=== PATIENT | female | born 2000 | race Caucasian/White ===

== ENCOUNTER 2025-05-31 14:41 | Emergency (ER) | payer OTHER, SELFPAY ==
[2025-05-31 14:49] VITALS: BP 138/97
[2025-05-31 15:25] LABS: Hematocrit 38.4 % (37.0-47.0); Hemoglobin 12.9 g/dL (12.0-16.0); Mean Corp Hgb Conc. 33.6 g/dL (33.0-37.0); Mean Corpuscular Volume 80.3 fL (81.0-99.0); Nucleated Red Blood Cells % 0 %; Platelet Count 357 10^3/uL (130-400); Red Cell Dist. Width 13.6 % (11.5-14.5)
[2025-05-31 15:38] LABS: HCG, Serum Qualitative Screen Negative
[2025-05-31 15:46] LABS: Troponin I < 0.012 ng/ml
[2025-05-31 15:51] LABS: ALT (SGPT) 18 U/L (0-35); AST (SGOT) 18 U/L (14-36); Albumin 4.3 g/dl (3.5-5.0); Alkaline Phosphatase 80 U/L (38-126); Blood Urea Nitrogen 12 mg/dl (7-17); Calcium 9.1 mg/dl (8.4-10.2); Carbon Dioxide 21 mmol/L (22-30); Chloride 111 mmol/L (98-107); Glucose 85 mg/dl (70-99); Potassium 4.4 mmol/L (3.5-5.1); Sodium 139 mmol/L (135-145); Total Protein 7.3 g/dl (6.3-8.2); eGFR > 60.00
[2025-05-31 16:35] VITALS: BP 128/80; BMI 53.1
--- NOTE | 2025-05-31 16:55 | ED.GENMED ---
History of Present Illness
General
Chief Complaint: Chest Pain
Source: patient
Time Seen by Provider: 05/31/25 16:42
History of Present Illness
History of Present Illness:
24-year-old female presents to the emergency department with complaints of right arm pain that she noticed earlier today, approximately 10 or 11 AM that then started to radiate up to her right neck and chest while she was in the shower. This
concerned her that it may be consistent with vasospasm which she had in the past which prompted her visit here. She now describes a 'dull ache' in her right arm, very mild in intensity associated with waves of a 'tight cramp' in her chest that
comes and goes without specific provoking or relieving factors. It is not pleuritic in nature and she denies associated dyspnea, leg swelling, recent immobilization, recent trauma, estrogen used. She denies nausea, vomiting, fever, chills, urinary
symptoms. Her last menstruation was last week. She denies anorexia and her bowel movements are normal. She denies numbness, tingling, swelling, headache, dizziness, or other complaints.
Past History
Past History
ED Past Medical History: Other (Asthma, reflux, vasospasm)
Social History
Tobacco: Non-smoker
Alcohol: Occasional
Drug: None
Personal: Partner
Living: with family
Phy Exam
Physical Exam
Physical Exam:
GENERAL: Alert , in no apparent distress
EYE: pupils equal and reactive
NECK: Supple, no significant adenopathy.
ENT: o/p clr, mmm.
CARDIAC: Regular rate and rhythm .
LUNGS: Clear breath sounds bilaterally, no acute respiratory distress, no wheezes/rales/rhonchi
ABDOMEN: Soft, without focal tenderness, no r/g, no cvat
NEUROLOGICAL: Alert and oriented, no focal neuro deficits
SKIN: Warm and dry, skin intact.
MUSCULOSKELETAL: No edema, well perfused.
PSYCH: Normal and appropriate interaction.
Scores
Heart Score for Chest Pain Patients
STEMI patient?: Not applicable
Course
Orders/Labs/Results
Orders:
Orders
05/31/25 14:51
Electrocardiogram (*1) Urgent
Reason for Study: Chest Pain
EKG- Treatment ONCE
Test Result ONCE
05/31/25 15:07
Complete Blood Count/With Diff Urgent
Comprehensive Metabolic Panel Urgent
HCG, Serum Qualitative Screen Urgent
Troponin I Urgent
05/31/25 18:27
Troponin I Urgent
Abnormal Lab Results
05/31/25
15:07
MCV 80.3 L fL
(81.0-99.0)
Chloride 111 H mmol/L
(98-107)
Carbon Dioxide 21 L mmol/L
(22-30)
05/31/25 15:07
05/31/25 15:07
Vital Signs
Initial and Last Documented VS:
Initial Vital Signs
Temp Pulse Resp BP Pulse Ox
98.4 F 95 16 138/97 100
05/31/25 14:49 05/31/25 14:49 05/31/25 14:49 05/31/25 14:49 05/31/25 14:49
Last Documented Vital Signs
Temp Pulse Resp BP Pulse Ox
98.4 F 91 19 108/58 98
05/31/25 14:49 05/31/25 18:30 05/31/25 18:30 05/31/25 18:00 05/31/25 17:45
*Pulse Oximetry
SaO2: 99
Oxygen Mode of Delivery: Room air
Patient hypoxic: no
*Critical Care Note
Total Time (30-74mins, 75-104mins- exclusive of procedures): Not Applicable
Update Note
Update Note:
Patient presents to the Emergency Department with arm neck and chest pain
Number and Complexity of Problems Addressed at the Encounter
� Chronic conditions affecting care:
� Acute Exacerbation and/or Progression of Chronic Illness:
� Differential Diagnosis includes: But not limited to anxiety, vasospasm, muscular strain, ACS, PE, etc. etc.
Amount and/or Complexity of Data to be Reviewed and Analyzed
� I performed an independent evaluation of and my interpretation is:
EKG: Read by me, normal sinus rhythm, normal rate, normal axis, no acute ischemia
CT:
Xrays:
Laboratory Studies: Unremarkable, troponin x 2 negative
Other:
� Review of other/old records reveals:
� Clinical information was obtained by an independent historian:
� Prescriptions/Medications Considered but not given:
� Further testing considered but not performed:
Risk of Complications and/or Morbidity or Mortality of Patient Management
� Social determinants of health affecting care:
� Discussion with other providers (PCP, Hospitalists, Consultants, etc):
� Escalation of care including admission/observation vs risk of discharge considered: First troponin unremarkable ECG unremarkable. Patient does not identify PE risk factors and her history is not suggestive of a PE.
7:11 PM patient remained stable here, no dyspnea, pulse ox within normal limits, troponin x 2 unremarkable. Highly doubt ACS, vasospasm, PE, dissection, pneumothorax, or other worrisome etiology for her symptoms tonight. Discussed with patient
importance of follow-up and reasons to return to the ER.
ED Attending Note
-
Portions of this chart may have been created with voice recognition software.� Occasional wrong word or��sound alike� substitutions may have occurred due to the inherent limitations of voice recognition software.
Discharge Plan
Departure
Patient Disposition: Home (Routine Discharge)
Date of Disposition: 05/31/25
Time of Disposition: 19:10
Patient with high blood pressure during this ER visit?: Yes
Condition: Good
Discharge Problem:
Chest pain
Instructions: Chest Pain PCP Follow Up, BLOOD PRESSURE
Referrals:
Muna Wilson MD, Resident [Family Provider, General] - Next open appointment
Activity Restrictions/Additional Instructions:
IF YOU DEVELOP INCREASING NEW OR PERSISTENT PAIN, ANY SHORTNESS OF BREATH, SWELLING, VOMITING, DIZZINESS, OR OTHER WORRISOME SIGNS, PLEASE RETURN TO THE ER IMMEDIATELY!
Interventions
Interventions:
*Risk Screen - Suicide Last Done: 05/31/25 14:52
*General Assessment Last Done: 05/31/25 14:52
*Neglect/Abuse Screening Last Done: 05/31/25 14:52
*ED- Fall Risk Assessment Last Done: 05/31/25 14:52
*ED COVID-19 Vaccine History Last Done: 05/31/25 16:36
ED- Cardiac Assessment Last Done: 05/31/25 16:37
Discharge Date and Time
Print Language: LUXEMBOURGER
[2025-05-31 17:00] VITALS: BP 109/73
[2025-05-31 18:00] VITALS: BP 108/58
[2025-05-31 18:59] LABS: Troponin I < 0.012 ng/ml
== END 2025-05-31 20:12 | disposition home or self-care (01) ==
LOC: EMR 14:41
PROVIDERS: EMERGENCY PHYSICIAN Emergency Medicine; FAMILY PHYSICIAN Student in an Organized Health Care Education/Training Program
DX: R07.9 Chest pain, unspecified (principal); J45.998 Other asthma; K21.9 Gastro-esophageal reflux disease without esophagitis
CPT/HCPCS: 99284; 80053; 84484; 84703; 85025; 93005

== ENCOUNTER 2025-08-11 09:50 | Emergency (ER) | payer OTHER, SELFPAY ==
[2025-08-11 09:53] VITALS: BP 137/90
--- NOTE | 2025-08-11 10:15 | ED.GENMED ---
History of Present Illness
General
Chief Complaint: Musculo-Skeletal Complaint
Source: patient
Exam Limitations: none
Time Seen by Provider: 08/11/25 10:08
Nursing documentation reviewed up to this point in time: agreed with
History of Present Illness
History of Present Illness:
Patient is a 24-year-old female with history of asthma who presents to the emergency department with right ankle injury. Patient states she was walking her dog this morning when she tripped on an uneven surface causing her to fall and inverted her
right ankle. She did not hit her head. She states that she has been unable to bear any weight on her right leg following fall. Her boyfriend did come and assist in getting her up. She denies any numbness/tingling in right ankle.
She does report chronic swelling in both of her lower legs due to suspected lymphedema.
No other concerns today.
Past History
Past History
ED Past Medical History: Other (Asthma, reflux, vasospasm)
Social History
Tobacco: Non-smoker
Alcohol: Occasional
Drug: None
Personal: Partner
Living: with family
Review of Systems
Review of Systems
Allergies reviewed?: Yes
All Other Systems: ROS reviewed and negative except as documented in HPI and ROS
Phy Exam
Physical Exam
Physical Exam:
Vitals: Mildly hypertensive, otherwise vital signs stable. Afebrile.
General: Patient is well appearing, no acute distress
Skin: Warm and dry, no rashes or lesions
Head: Normocephalic, atraumatic
Throat: Protecting airway
Neck: Normal ROM, no cervical spine tenderness
Cardiac: Regular rate
Pulm: No apparent respiratory distress
Abdomen: Nondistended
Extremities: Nonpitting edema of bilateral lower extremities (baseline). Mild tenderness of both right lateral and medial malleolus without obvious deformity. No tenderness of right midfoot, hindfoot, base of right fifth metatarsal, or head of
right fibula. No calcaneal tenderness. Achilles intact. Plantarflexion/dorsiflexion intact in right ankle. Full range of motion of right knee.
Neuro: Grossly intact
Psychiatric: Normal affect.
Course
Orders/Labs/Results
Orders:
Orders
08/11/25 09:58
Ankle, Right 3 view CR [CR Ankle - Right Min 3 Views *] Urgent
Comment:
Reason For Exam: pain after a fall
08/11/25 10:40
Ibuprofen [Motrin] 600 mg PO NOW STA
08/11/25 11:04
Crutches-Treatment ONCE
Vital Signs
Initial and Last Documented VS:
Initial Vital Signs
Temp Pulse Resp BP Pulse Ox
97.5 F 68 20 137/90 99
08/11/25 09:53 08/11/25 09:53 08/11/25 09:53 08/11/25 09:53 08/11/25 09:53
Last Documented Vital Signs
Temp Pulse Resp BP Pulse Ox
97.5 F 68 20 137/90 99
08/11/25 09:53 08/11/25 09:53 08/11/25 09:53 08/11/25 09:53 08/11/25 10:15
MDM/Problems Addressed
Differential Diagnosis Includes:
Not limited to: Ankle sprain, ankle fracture, foot sprain, Achilles tendon rupture, etc.
MDM/Problems Addressed:
24 year-old female with right ankle injury after inversion type injury this morning. No head strike or other associated injuries. Vitals stable. On exam, she does have chronic lymphedema of bilateral lower leg with significant non pitting edema. No
obvious deformity of right ankle. She has mild reproducible tenderness in both medial and lateral malleolus. Right lower extremity neurovascularly intact.
X-ray of right ankle without evidence of fracture.
Ultimately � suspect ankle sprain. Given significant lymphedema � unable to place an ortho boot or air cast. Will wrap with FRANCIA bandage for compression and provide crutches as needed for ambulation. Discussed rest, ice, compression, elevation and
NSAIDS for pain. Referral information for orthopedics provided if symptoms persist or worsen. Return precautions discussed.
Chronic conditions affecting care:
N/A
Acute Exacerbation and/or Progression of Chronic Illness:
N/A
*Radiology
Radiology exam reviewed: preliminary read by ED provider (Right ankle x-ray reviewed by me-no acute fracture) and radiology read reviewed
*Pulse Oximetry
SaO2: 99
Oxygen Mode of Delivery: Room air
Patient hypoxic: no
*EKG
Interpreted by ED Provider?: NA
*Airplane Engineer Interpretation
Rate: Airplane Engineer- N/A
*Critical Care Note
Total Time (30-74mins, 75-104mins- exclusive of procedures): Not Applicable
ED Attending Note
-
Portions of this chart may have been created with voice recognition software.� Occasional wrong word or��sound alike� substitutions may have occurred due to the inherent limitations of voice recognition software.
Discharge Plan
Departure
Patient Disposition: Home (Routine Discharge)
Date of Disposition: 08/11/25
Time of Disposition: 11:07
Patient with high blood pressure during this ER visit?: Yes
Condition: Good
Discharge Problem:
Right ankle sprain
Instructions: Ankle sprain - ED (DC), BLOOD PRESSURE
Referrals:
Micheal Green MD [Active, Orthopedics] - Follow up in 10 days
Activity Restrictions/Additional Instructions:
RETURN TO THE EMERGENCY DEPARTMENT WITH ANY INTRACTABLE PAIN, NUMBNESS/TINGLING IN RIGHT ANKLE OR FOOT, WORSENING IN CURRENT SYMPTOMS, OR ANY OTHER CONCERNS
- As discussed, your x-ray showed no evidence of a fracture in your right ankle. You likely sustained an ankle sprain.
- Wear Ortho boot or Aircast for the next few weeks. You can weight-bear as tolerated. Use crutches over the next few days as needed. Continue to ice, elevate ankle frequently over the next 2 days. Take Motrin and/or Tylenol as needed for pain.
- Follow-up with orthopedics for further evaluation and to ensure that your symptoms are improving
Monitor your symptoms closely and return to the emergency department with any acute worsening/new symptoms or any other concerns
Interventions
Interventions:
*Risk Screen - Suicide Last Done: 08/11/25 09:53
*Neglect/Abuse Screening Last Done: 08/11/25 09:53
*Nursing Disposition Last Done: 08/11/25 11:47
ED-Musculoskeletal Assessment Last Done: 08/11/25 10:10
Discharge Date and Time
Discharge Date/Time: 08/11/25 11:47
Print Language: VIET[place]ESE
[2025-08-11] MEDS: MOTRIN 600 MG PO (10:44)
== END 2025-08-11 11:47 | disposition home or self-care (01) ==
LOC: EMR 09:50
PROVIDERS: EMERGENCY PHYSICIAN Student in an Organized Health Care Education/Training Program; FAMILY PHYSICIAN Student in an Organized Health Care Education/Training Program
DX: S93.401A Sprain of unspecified ligament of right ankle, initial encounter (principal); Y93.K1 Activity, walking an animal; J45.998 Other asthma
CPT/HCPCS: 99283; 73610